=== PATIENT | female | born 1965 | race Caucasian/White ===

== ENCOUNTER 2017-03-06 07:46 | Inpatient (IN) | payer BC, OTHER ==
[~2017-03-06] VITALS: Ht 162.6 cm; Wt 62.6 kg
[2017-03-06] MEDS ORDERED: LOPERAMIDE HCL 2 MG CAPSULE PO PRN ×2 (10:00)
[2017-03-06] MEDS ORDERED: MAGNESIUM HYDROXIDE 30 ML LIQUID UDC PO PRN (10:00)
[2017-03-06] MEDS ORDERED: MIRALAX 17 GM POWD.PACK PO PRN (10:00)
[2017-03-06] MEDS ORDERED: ACETAMINOPHEN 325 MG TABLET PO PRN (10:00)
[2017-03-06] MEDS ORDERED: MAG HYDROX/AL HYDROX/SIMETH 30 ML LIQUID UDC PO PRN (10:00)
[2017-03-06] MEDS ORDERED: DIAZEPAM 10 MG TABLET PO PRN ×2 (10:00)
[2017-03-06] MEDS ORDERED: DIAZEPAM 5 MG TABLET PO PRN (10:00)
[2017-03-06] MEDS ORDERED: LORAZEPAM 2 MG/1 ML VIAL IM PRN (10:00)
[2017-03-06] MEDS ORDERED: DICYCLOMINE HCL 20 MG TABLET PO PRN (10:00)
[2017-03-06] MEDS ORDERED: diphenhydrAMINE 50 MG CAPSULE PO PRN (10:00)
--- NOTE | 2017-03-06 10:02 | NUR ---
INTAKE INTERVIEW Patient is alert an orientated X 4. Vitals signs are stable. Patient is able to answer intake questions appropriately and has a steady gait. Patient has NKA. Patient was seen by Dr. Reddy. Will orientate patient to unit and assess once she is arrives to the unit. .
--- NOTE | 2017-03-06 10:30 | NUR ---
ADMISSION NOTE VITALS:BP:129/74 P:101 T:96.8F R:18 O2:96% HEIGHT:5'4" WEIGHT:138LB ALLERGIES:ATUL patient is a 51 year old lady admitted to [facility] on at 1030. patient is under the care of Dr. Reddy for ETOH and Xanax dependence. Patient denies suicidal and homicidal ideations at this time. Patient denies being hospitalized in the past 30 days. Patient denies chest pain and SOB. Patient reports consuming a pint or more of ETOH daily and 1mg of Xanax a day. Skin is intact upon admission. CIWA 4 upon admission. NKA patient is alert X4 and able to answer questions necessary for the admission process. Pt is a full code. Vital signs within normal limit, and on a regular diet. Patient denies having a seizure in the past, she also denies having PCP. Breathing is even and unlabored, spo2 is 96% on room air. patient ambulates with a steady gait, patient re[ports feeling very tired. patient reports having a history of anxiety, HTN, and diabetes. Patient smokes roughly 1/2 pack of cigarettes a day. patient has been seen by Dr. Reddy and has been placed on observation. all needs have been met. patient has been orientated to her room and the unit. All safety measures have been met per hospital policies. Will continue to monitor patient. SUBSTANCE ABUSE: ETOH pint plus a day, last used 03/06/17 has yasmeen using for a year progressively XANAX 1mg daily last used 03/05/17, using for a year
[2017-03-06 10:49] LABS: *AMPHETAMINE, URINE NEGATIVE (NEGATIVE); *BARBITURATE, URINE POSITIVE (NEGATIVE); *CANNABINOID, URINE POSITIVE (NEGATIVE); *COCCAINE, URINE NEGATIVE (NEGATIVE); *OPIATE, URINE NEGATIVE (NEGATIVE); *PHENCYCLIDINE SCREEN,URINE NEGATIVE (NEGATIVE)
[2017-03-06 10:50] LABS: *URINE HCG, QUAL NEGATIVE (NEGATIVE)
[2017-03-06] MEDS ORDERED: THIAMINE HCL 200 MG/2 ML VIAL IM ONE (11:32)
[2017-03-06 11:49] LABS: ETHANOL < 3 MG/DL (0-0)
[2017-03-06 11:56] LABS: BASOPHILS # (AUTO) 0.2 K/uL (0.0-8.0); BASOPHILS % (AUTO) 2.1 % (0.0-2.0); EOSINOPHILS # (AUTO) 0.1 K/uL (0.0-0.7); EOSINOPHILS % (AUTO) 1.8 % (0.0-7.0); HEMATOCRIT 46.9 % (37-47); LYMPHOCYTES # (AUTO) 3.1 K/UL (0.8-4.8); LYMPHOCYTES % (AUTO) 40.8 % (20.5-51.5); MEAN CORPUSCULAR HEMOGLOBIN 33.8 UUG (27.0-31.0); MEAN CORPUSCULAR HGB CONC 34 g/dL (32.0-37.0); MEAN CORPUSCULAR VOLUME 98.8 FL (81.0-99.0); MONOCYTES # (AUTO) 0.6 K/UL (0.1-1.30); MONOCYTES % (AUTO) 7.3 % (0.0-11.0); NEUTROPHILS # (AUTO) 3.6 K/UL (1.8-8.9); PLATELET COUNT (AUTO) 331 K/UL (150-450); RED BLOOD CELL COUNT(AUTO) 4.75 MIL/UL (4.2-5.4); WHITE BLOOD COUNT (AUTO) 7.6 K/UL (4.0-11.2)
[2017-03-06 11:57] LABS: ALANINE AMINOTRANSFERASE 39 U/L (14-59); ALKALINE PHOSPHATASE 88 U/L (50-136); AMYLASE 47 U/L (25-115); ASPARTATE AMINOTRANSFERASE 23 U/L (15-37); BILIRUBIN,TOTAL 0.4 mg/dL (0.2-1.0); CARBON DIOXIDE 28 mmol/L (21-32); CHLORIDE 105 mmol/L (98-107); CREATININE 1.1 mg/dL (0.6-1.3); GLUCOSE 167 mg/dL (74-106); LIPASE 194 U/L (73-393); MAGNESIUM 2.2 mg/dL (1.8-2.4); TOTAL PROTEIN, SERUM 7.4 g/dL (6.4-8.2); UREA NITROGEN, BLOOD 10 mg/dL (7-18)
[2017-03-06 12:36] LABS: POTASSIUM 2.8 mmol/L (3.5-5.1)
[2017-03-06 13:08] VITALS: BP 149/94
[2017-03-06] MEDS ORDERED: POTASSIUM CHLORIDE 20 MEQ TAB.PRT.SR PO ONE (13:30)
[2017-03-06] MEDS: IBUPROFEN 600 MG TABLET PO PRN (13:34)
--- NOTE | 2017-03-06 13:36 | NUR ---
PRN MOTRIN Patient complaining of a headache 7 out of 10 pain. Motrin given will continue to monitor
[2017-03-06] MEDS ORDERED: DEXTROSE 50% 50 ML DISP.SYRIN IV PRN (14:15)
[2017-03-06] MEDS: GABAPENTIN 300 MG CAPSULE PO SCH ×2 (15:34→20:22)
[2017-03-06 16:51] VITALS: BP 146/94
[2017-03-06] MEDS: BLOOD SUGAR DIAGNOSTIC 1 EACH STRIP VI SCH ×2 (17:11→21:00)
[2017-03-06] MEDS: METFORMIN HCL 500 MG TABLET PO SCH (17:39)
[2017-03-06] MEDS: INSULIN REGULAR, HUMAN 300 UNIT/3 ML VIAL SQ PRN ×2 (17:42→22:08)
[2017-03-06] MEDS: CLONIDINE HCL 0.1 MG TABLET PO PRN (17:50)
--- NOTE | 2017-03-06 17:51 | NUR ---
CLONIDINE PRN patient complaining of increased anxiety and headache. BP 146/94. will continue to monitor patient.
[2017-03-06] MEDS: ALBUTEROL SULFATE 2.5 MG/3 ML NEBU NEB PRN (18:08)
--- NOTE | 2017-03-06 18:20 | NUR ---
PRN REASSESSMENT patient expresses headache is a little better after clonidine was given. Will continue to monitor
--- NOTE | 2017-03-06 19:02 | NUR ---
317 END OF SHIFT NOTE Patient was admitted today for ETOH and Xanax dependence. Patient is alert and orientated X4, gait is steady. Patient is in stable condition, BP is elevated and DR. Reddy aware. Patient has a medical history of hypertension, diabetes, and chronic migraines. PRN Motrin and Clonidine was given for headache and increased anxiety with effectiveness. Patients skin is intact. NKA. Patients potassium was 2.8 MD notified and replacement was ordered. Accu-cheeks ACHS with a sliding scale, patient is also on metformin. Last CIWA 6. All safety measures are in place per hospital policies. All needs have been met. Will continue to monitor patient until endorsed to night nurse.
--- NOTE | 2017-03-06 19:03 | NUR ---
Start of shift note Received report from day shift nurse. Pt is a 51 yo F, A+Ox4, presenting to [facility] for ETOH/Benzo dependence. Pt has NKA, is on Full Code status, and on Diabetic diet. Pt is on Fall precautions. Pt has HX of DM II, HTN, and Migraines. Pt is on PRN medications and 5 day Valium taper, to start tomorrow, tolerated well. No s/s of distress noted at this time. Respirations even and unlabored. Will continue to monitor.
[2017-03-06 20:15] VITALS: BP 151/89
--- NOTE | 2017-03-06 20:22 | NUR ---
PRN Tylenol Pt c/o headache and requested for PRN Tylenol. Medication given and tolerated well. Will reassess within 1 HR. Will continue to monitor.
[2017-03-06] MEDS ORDERED: POTASSIUM CHLORIDE 20 MEQ TAB.PRT.SR PO SCH (21:00)
--- NOTE | 2017-03-06 21:20 | NUR ---
PRN Tylenol Reassessment Pt states that the medication was "mildly effective". No s/s of ASE/distress noted at this time. Respirations even and unlabored. Will continue to monitor.
--- NOTE | 2017-03-06 22:14 | NUR ---
PRN Benadryl and Imodium Pt c/o loose stools and inability to sleep and requested for PRN Benadryl and Imodium. Medications given and tolerated well. Will reassess within 1 HR. Will continue to monitor.
[2017-03-06] MEDS: KETOROLAC TROMETHAMINE 30 MG INJ IM PRN (23:29)
--- NOTE | 2017-03-06 23:29 | NUR ---
PRN Toradol Pt c/o headache 02/05 and requested for PRN Toradol. Medication given and tolerated well. Will reassess within 1 HR. Will continue to monitor.
--- NOTE | 2017-03-07 00:25 | NUR ---
PRN Toradol Reassessment Medication effective. No s/s of ASE/distress noted at this time. Respirations even and unlabored. Will continue to monitor.
[2017-03-07 00:59] VITALS: BP 148/90
[2017-03-07 04:11] VITALS: BP 144/87
--- NOTE | 2017-03-07 06:54 | NUR ---
End of shift note Pt is a 51 yo Female, A+Ox4, presenting to [facility] for ETOH/Benzo dependence. Pt has NKA, is on Full Code status, and on Diabetic diet. Pt is on Fall precautions. Pt has HX of DM II, HTN, and Migraines. Pt is on PRN medications and 5 day Valium taper to start tomorrow, tolerated well. Pt was given PRN Tylenol @2021, PRN Benadryl and Imodium @2213, and PRN Toradol @2328. Pt slept for a total of 8 HRS. Last CIWA: 3 @0400. No s/s of distress noted at this time. Respirations even and unlabored. Will endorse to day shift nurse.
--- NOTE | 2017-03-07 07:53 | NUR ---
START OF SHIFT NOTE Patient is alert and orientated X4. Patient is awake walking around the unit this morning. She slept 8 hours last night per night nurse. Blood pressure is elevated this morning, scheduled BP meds will be given. PRN Tylenol, Benadryl, Imodium, and Toradol given last night with effectiveness. last CIWA 3 per night nurse. All safety measures in place. Will continue to monitor patient.
[2017-03-07 08:01] LABS: CREATININE 0.9 mg/dL (0.6-1.3); POTASSIUM 4.5 mmol/L (3.5-5.1)
[2017-03-07] MEDS: THIAMINE HCL 100 MG TABLET PO SCH (08:16)
[2017-03-07] MEDS: GABAPENTIN 300 MG CAPSULE PO SCH ×3 (08:16→22:34)
[2017-03-07] MEDS: METFORMIN HCL 500 MG TABLET PO SCH ×2 (08:16→17:33)
[2017-03-07] MEDS: FOLIC ACID 1 MG TABLET PO SCH (08:16)
[2017-03-07] MEDS: BLOOD SUGAR DIAGNOSTIC 1 EACH STRIP VI SCH ×4 (08:16→21:00)
[2017-03-07] MEDS: LINAGLIPTIN 5 MG TABLET PO SCH (08:17)
[2017-03-07] MEDS: LISINOPRIL 10 MG TABLET PO SCH (08:17)
[2017-03-07] MEDS: DIAZEPAM 10 MG TABLET PO SCH ×4 (08:17→22:34)
[2017-03-07] MEDS: MULTIVITAMINS,THERAPEUTIC TABLET PO SCH (08:19)
[2017-03-07] MEDS: NICOTINE 7 MG/24HR PATCH TD SCH (08:22)
[2017-03-07] MEDS: DOCUSATE SODIUM 250 MG CAPSULE PO SCH (08:22)
[2017-03-07] MEDS: INSULIN REGULAR, HUMAN 300 UNIT/3 ML VIAL SQ PRN ×4 (08:27→22:46)
[2017-03-07 08:47] VITALS: BP 148/98
[2017-03-07] MEDS ORDERED: TUBERCULIN,PURIF.PROT.DERIV. 5 TU/0.1 ML TEST ID ONE (09:00)
[2017-03-07] MEDS ORDERED: SITAGLIPTIN PHOSPHATE 50 MG TABLET PO SCH (09:00)
[2017-03-07] MEDS ORDERED: 5 DAY TAPER VALIUM-SERENITY PROTOCOL PO PRN (09:00)
[2017-03-07 10:10] LABS: HEPATITIS B SURFACE AG Negative (Negative)
[2017-03-07] MEDS: ALBUTEROL SULFATE 2.5 MG/3 ML NEBU NEB PRN (10:56)
[2017-03-07] MEDS ORDERED: KETOROLAC TROMETHAMINE 60 MG INJ IM ONE (11:30)
[2017-03-07 12:34] VITALS: BP 148/93
--- NOTE | 2017-03-07 13:17 | NUR ---
This fiction and nonfiction writer prose encouraged the client to attend groups. Client responded that she would not attend today but perhaps tomorrow.
[2017-03-07] MEDS: MAGNESIUM SULFATE/D5W 100 ML IV SCH ×2 (14:15→15:45)
--- NOTE | 2017-03-07 14:18 | NUR ---
IV #22j started left hand. Magnesium 1g in 100cc D5W running via pump at 100cc/hr. Tolerating well
[2017-03-07] MEDS ORDERED: ALBU18HF2 INH (14:28)
[2017-03-07] MEDS ORDERED: [UNRECOGNIZED DRUG - CODE] PO (14:28)
[2017-03-07] MEDS ORDERED: MONT10TA25 PO ×2 (14:28→14:29)
[2017-03-07] MEDS ORDERED: ACET-2605 PO (14:28)
[2017-03-07] MEDS ORDERED: CEPH500C2 PO (14:29)
[2017-03-07] MEDS ORDERED: PRED20TA PO (14:29)
[2017-03-07 17:10] VITALS: BP 150/96
--- NOTE | 2017-03-07 18:40 | NUR ---
END OF SHIFT NOTE Patient was admitted 03/06/17 for ETOH and Xanax dependence. patient is alert and orientated X 4. Patient has had elevated BP off and on today. Patient started a 5 day valium taper and tolerating well. Patient has an IV to her left hand 22 gauge for 2 gm of magnesium ordered. IV is help locked, no signs of infiltration. Patient received a breathing treatment from respiratory and Dr. Reddy order chest X ray for a persistent productive cough. TB was done today. Patient has been complaining of a headache no PRNs were given. Last CIWA 7. Patients skin is intact. Patient has ACCU-CK ACHS with a sliding scale for coverage. All safety measures are in place per hospital policies. All needs have been met. will continue to monitor patient until endorsed to oncoming night nurse.
--- NOTE | 2017-03-07 19:02 | NUR ---
Start of shift note Received report from day shift nurse. Pt is a 51 yo F, A+Ox4, presenting to [facility] for ETOH/Benzo dependence. Pt has NKA, is on Full Code status, and on Diabetic diet. Pt is on Fall precautions. Pt has HX of DM II, HTN, and Migraines. Pt is on 5 day Valium taper, tolerated well. No s/s of distress noted at this time. Respirations even and unlabored. Will continue to monitor.
[2017-03-07 20:09] VITALS: BP 141/90
[2017-03-07] MEDS: TRAZODONE 50 MG TABLET PO PRN (22:34)
[2017-03-07] MEDS: KETOROLAC TROMETHAMINE 30 MG INJ IM PRN (22:35)
--- NOTE | 2017-03-07 22:35 | NUR ---
PRN Trazodone and Toradol Pt c/o headache and inability to sleep and requested for PRN Trazodone and Toradol. Medications given and tolerated well. Will reassess within 1 HR. Will continue to monitor.
--- NOTE | 2017-03-07 23:20 | NUR ---
PRN Trazodone and Toradol Reassessment Medications effective. Pt is resting well in bed. No s/s of ASE/distress noted at this time. Respirations even and unlabored. Will continue to monitor.
[2017-03-08] VITALS (7 sets, daily range): BP systolic 135–159; BP diastolic 79–103
--- NOTE | 2017-03-08 07:00 | NUR ---
End of shift note Pt is a 51 yo Female, A+Ox4, presenting to [facility] for ETOH/Benzo dependence. Pt has NKA, is on Full Code status, and on Carb consistent diet. Pt is on Fall precautions. Pt has HX of DM II, HTN, and Migraines. Pt is on 5 day Valium taper tolerated well. Pt was given PRN Trazodone and PRN Toradol @2235. Pt slept for a total of 7 HRS. Last CIWA: 2 @0400. No s/s of distress noted at this time. Respirations even and unlabored. Will endorse to day shift nurse.
--- NOTE | 2017-03-08 07:30 | NUR ---
START OF SHIFT NOTE Pt is a 51 yr old female, AA&Ox4. Pt was admitted on 03/06/17 for ETOH/Benzo Dependence and is on 5 day Valium taper. Medication mitch well. Pt received Trazodone and Toradol PRN during the night. Medication mitch well. Pt slept for 7 hrs. Last CIWA score was 2. Pt has PMH of DII. Last accu-check was at HS. No s/s of hypo/hyperglycemia. Pt is c/o headache 03/08. Facial grimacing is observed. Encouraged increase fluid intake. Pt denies any anxiety or agitation at this time. Skin is intact, warm and dry to touch. Fine tremors are felt. Pt denies any n/v. IV site is on left hand with 22 gauge. Dressing is intact. Safety precautions observed. Call light is within reach. Will continue to monitor.
[2017-03-08] MEDS: BLOOD SUGAR DIAGNOSTIC 1 EACH STRIP VI SCH ×4 (07:43→21:00)
[2017-03-08] MEDS: GABAPENTIN 300 MG CAPSULE PO SCH ×3 (08:29→22:36)
[2017-03-08] MEDS: LISINOPRIL 10 MG TABLET PO SCH (08:29)
[2017-03-08] MEDS: METFORMIN HCL 500 MG TABLET PO SCH ×2 (08:29→17:04)
[2017-03-08] MEDS: THIAMINE HCL 100 MG TABLET PO SCH (08:29)
[2017-03-08] MEDS: MULTIVITAMINS,THERAPEUTIC TABLET PO SCH (08:29)
[2017-03-08] MEDS: DIAZEPAM 10 MG TABLET PO SCH ×3 (08:29→22:36)
[2017-03-08] MEDS: DOCUSATE SODIUM 250 MG CAPSULE PO SCH (08:30)
[2017-03-08] MEDS: FOLIC ACID 1 MG TABLET PO SCH (08:30)
[2017-03-08] MEDS: LINAGLIPTIN 5 MG TABLET PO SCH (08:30)
[2017-03-08] MEDS: NICOTINE 7 MG/24HR PATCH TD SCH (08:30)
[2017-03-08] MEDS: INSULIN REGULAR, HUMAN 300 UNIT/3 ML VIAL SQ PRN ×3 (08:33→22:47)
--- NOTE | 2017-03-08 08:40 | NUR ---
MEDICATION REFUSED Pt refused to take Colace 250mg and NicoDerm Patch 7mg. Pt states of having loose stool during the night and plans to smoke cigarettes during the day. Pt was educated on risks and benefits of medication but continued to refuse.
[2017-03-08] MEDS: IBUPROFEN 600 MG TABLET PO PRN (10:30)
--- NOTE | 2017-03-08 10:30 | NUR ---
MOTRIN PRN GIVEN Pt c/o headache 02/05. Motrin 600mg PO PRN was given as ordered. Medication mitch well. Encouraged increase fluid intake. Will continue to monitor.
--- NOTE | 2017-03-08 10:31 | NUR ---
IV 22 gauge was removed from left hand per Dr. Reddy.
--- NOTE | 2017-03-08 11:30 | NUR ---
PRN RE-ASSESSMENT Motrin PRN was effective. Pt's pain level reduced to 4/10. Encouraged increase fluid intake.
[2017-03-08] MEDS: GUAIFENESIN/DEXTROMETHORPHAN 5 ML UDC PO PRN ×2 (12:57→22:46)
--- NOTE | 2017-03-08 12:57 | NUR ---
PRN GIVEN Pt is observed with productive cough. Robitussin 10ml PRN was given as ordered. Encouraged increase fluid intake. Will continue to monitor.
--- NOTE | 2017-03-08 14:00 | NUR ---
PRN RE-ASSESSMENT Robitussin PRN was effective. Encouraged increase fluid intake. Will continue to monitor.
[2017-03-08] MEDS: CLINDAMYCIN HCL 150 MG CAPSULE PO SCH (17:05)
[2017-03-08] MEDS: KETOROLAC TROMETHAMINE 30 MG INJ IM PRN (17:22)
--- NOTE | 2017-03-08 17:26 | NUR ---
PRN GIVEN Pt c/o headache 02/05. Facial grimacing is observed. Toradol 30mg IM PRN was given as ordered. Will continue to monitor.
--- NOTE | 2017-03-08 19:00 | NUR ---
END OF SHIFT NOTE Pt is a 51 yr old female, AA&Ox4. Pt was admitted on 03/06/17 for ETOH/Benzo Dependence and is on 5 day Valium taper. Medication mitch well. Pt has been cooperative with medication regimen and attended group sessions. Last CIWA score was 4 at 1600. Pt has been c/o headache throughout the day. Motrin PRN was given at 1030 and Toradol at 1722. Medication was effective. Pt start on Clindamycin for Sinus infection. No adverse reaction noted. Encouraged increase fluid intake. Pt denies any anxiety or agitation at this time. Skin is intact, warm and dry to touch. No tremors seen or felt. Pt denies any n/v. Safety precautions observed. Call light is within reach.
--- NOTE | 2017-03-08 19:10 | NUR ---
Start of shift note Received report from day shift nurse. Pt is a 51 yo F, A+Ox4, presenting to [facility] for ETOH/Benzo dependence. Pt has NKA, is on Full Code status, and on Diabetic diet. Pt is on Fall precautions. Pt has HX of DM II, HTN, and Migraines. Pt is on 5 day Valium taper, tolerated well. No s/s of distress noted at this time. Respirations even and unlabored. Will continue to monitor.
[2017-03-08] MEDS: TRAZODONE 50 MG TABLET PO PRN (22:36)
--- NOTE | 2017-03-08 22:46 | NUR ---
PRN Trazodone and Robitussin DM Pt c/o cough and inability to sleep and requested for PRN Trazodone and Robitussin DM. Medications given and tolerated well. Will reassess within 1 HR. Will continue to monitor.
--- NOTE | 2017-03-08 23:40 | NUR ---
PRN Trazodone and Robitussin DM Reassessment Medications effective. Pt is resting well in bed. No s/s of ASE/distress noted at this time. Respirations even and unlabored. Will continue to monitor.
[2017-03-09] VITALS (7 sets, daily range): BP systolic 144–168; BP diastolic 86–98
[2017-03-09] MEDS: IBUPROFEN 600 MG TABLET PO PRN ×2 (06:39→13:37)
[2017-03-09] MEDS: GUAIFENESIN/DEXTROMETHORPHAN 5 ML UDC PO PRN ×3 (06:47→22:01)
--- NOTE | 2017-03-09 06:47 | NUR ---
PRN Robitussin DM and Motrin Pt c/o headache and cough and requested for PRN Robitussin DM and Motrin. Medications given and tolerated well. Will reassess within 1 HR. Will continue to monitor.
--- NOTE | 2017-03-09 07:15 | NUR ---
PRN Robitussin and Motrin Reassessment Medications effective. No s/s of ASE/distress noted at this time. Respirations even and unlabored. Will continue to monitor.
--- NOTE | 2017-03-09 07:16 | NUR ---
End of shift note Pt is a 51 yo Female, A+Ox4, presenting to [facility] for ETOH/Benzo dependence. Pt has NKA, is on Full Code status, and on Carb consistent diet. Pt is on Fall precautions. Pt has HX of DM II, HTN, and Migraines. Pt is on 5 day Valium taper tolerated well. Pt was given PRN Trazodone and PRN Robitussin DM @2246 and PRN Robitussin DM and Motrin @0647. Pt slept for a total of 7 HRS. Last CIWA: 3 @0400. No s/s of distress noted at this time. Respirations even and unlabored. Will endorse to day shift nurse.
--- NOTE | 2017-03-09 07:35 | NUR ---
BEGINNING OF SHIFT Patient endorsement report received from casino shift manager nurse, all pertinent information discussed. Patient is a 51 year old Female admitted for ETOH/BZO dependence, who was placed on a 5-day Valium taper as ordered, and is scheduled to begin day 3 of taper. No adverse reactions noted. NKA. FULL CODE. Regular diet. Per casino shift manager patient received PRN: Trazodone, Motrin and Robitussin x2, during casino shift manager, medication effective as per casino shift manager. Slept for 7 hours. Last CIWA: 3. On fall and seizure precautions. Educated patient on the current plan of care for the day and his medication regimen, Safety measures in place. call light kept with in reach, will continue to monitor.
[2017-03-09] MEDS: BLOOD SUGAR DIAGNOSTIC 1 EACH STRIP VI SCH ×4 (08:15→21:59)
[2017-03-09] MEDS: CLINDAMYCIN HCL 150 MG CAPSULE PO SCH ×2 (08:16→17:00)
[2017-03-09] MEDS: MULTIVITAMINS,THERAPEUTIC TABLET PO SCH (08:16)
[2017-03-09] MEDS: GABAPENTIN 300 MG CAPSULE PO SCH ×3 (08:17→21:56)
[2017-03-09] MEDS: DOCUSATE SODIUM 250 MG CAPSULE PO SCH (08:17)
[2017-03-09] MEDS: THIAMINE HCL 100 MG TABLET PO SCH (08:17)
[2017-03-09] MEDS: FOLIC ACID 1 MG TABLET PO SCH (08:17)
[2017-03-09] MEDS: LISINOPRIL 10 MG TABLET PO SCH (08:17)
[2017-03-09] MEDS: LINAGLIPTIN 5 MG TABLET PO SCH (08:17)
[2017-03-09] MEDS: MONTELUKAST SODIUM 10 MG TABLET PO SCH (08:17)
[2017-03-09] MEDS: DIAZEPAM 5 MG TABLET PO SCH ×4 (08:17→21:56)
[2017-03-09] MEDS: NICOTINE 7 MG/24HR PATCH TD SCH (08:19)
[2017-03-09] MEDS: INSULIN REGULAR, HUMAN 300 UNIT/3 ML VIAL SQ PRN ×3 (08:21→17:22)
[2017-03-09] MEDS: METFORMIN HCL 500 MG TABLET PO SCH ×2 (08:26→17:00)
--- NOTE | 2017-03-09 13:37 | NUR ---
PRN MOTRIN/ROBITUSSIN Patient c/o head ache 4/10 and on/off cough. Administered Motrin as ordered and Robitussin as ordered, monitor closely for effectiveness of medication.
--- NOTE | 2017-03-09 14:47 | NUR ---
MOTRIN/ROBITUSSIN REASSESSMENT Patient reports medication effective no c/o headache pain level 0/10. Patient reports decrease in cough. medications were effective, will continue to monitor.
--- NOTE | 2017-03-09 18:43 | NUR ---
END OF SHIFT Patient alert and oriented x4, vital signs stable during shift. Patient compliant with therapeutic plan of care during shift. Patient continues on 5 day Valium taper as ordered, and is currently on day 3 of taper, well tolerate no ASE noted. Encouraged adequate PO fluid intake as tolerated. 0900 assessment patient presented with: moderate anxiety and very mild headache with ciwa score of: 5; 1300 assessment patient presented with: moderate anxiety and very mild headache with ciwa score of: 5; 1700 assessment patient presented with: moderate anxiety and very mild headache with ciwa score of: 5. Blood sugar monitored during shift as ordered, 0730 blood sugar: 160, administered 2 units as ordered, 1130 blood sugar: 180, administered 3 units of regular insulin as ordered; 1630 blood sugar: 170, administered 3 unit of regular insulin as ordered, well tolerated. Patient also continues on ATB therapy as ordered for sinus infection as per MD. Well tolerated, no ASE noted. Patient afebrile during shift. Patient still noted with on/off productive cough, encouraged to increase PO fluid intake as tolerated. .Patient received PRN: Motrin and Robitussin during shift, medications effective. Encouraged to attend group therapies/sessions to learn new coping skills to prevent relapse. Safety measures i place, call light kept with in reach. Patient endorsed to night guard nurse, all pertinent information discussed.
--- NOTE | 2017-03-09 19:10 | NUR ---
Start of Shift Patient Received. Patient is in activities room participating in a group meeting. Patient is a 51 year old female admitted on 03/06/17 for ETOH Dependence under the care of Dr. Reddy. Patient is currently receiving a 5 day Valium taper. Patient verbalizes no known allergies, wishes to be full code, following a regular diet, placed on fall precautions, with skin noted intact. Patients past medical history noted as DM with accu checks ACHS, HTN, and Chronic migraines. Per endorsement, patient was given PRN Motrin and PRN Robitussin for productive cough. Patients last noted CIWA noted to be 5. All needs attended to promptly. Will continue plan of care as ordered.
[2017-03-09] MEDS: CLONIDINE HCL 0.1 MG TABLET PO PRN (21:15)
--- NOTE | 2017-03-09 21:15 | NUR ---
PRN Medication Administration Patient is noted with elevated BP of 168/97 and pulse of 90. PRN Clonidine administered as per orders. Will continue to monitor.
[2017-03-09] MEDS: TRAZODONE 50 MG TABLET PO PRN (21:56)
--- NOTE | 2017-03-09 22:05 | NUR ---
PRN Medication Reassessment/ PRN Medication Administration Blood pressure reassessed and noted to be 144/92 and pulse noted to be 90. PRN Clonidine noted to be effective. Patient is also requesting medication for increased cough and inability of falling asleep. PRN Robitussin and Trazodone administered as per order. Will continue to monitor.
--- NOTE | 2017-03-09 23:10 | NUR ---
PRN Medication Reassessment Patient noted in bed sleeping. Breathing even and non labored. No signs of pain or discomfort noted. No cough noted while sleeping. PRN Robitussin and PRN trazodone noted to be effective. Will continue to monitor.
[2017-03-10] VITALS (7 sets, daily range): BP systolic 122–166; BP diastolic 74–103
--- NOTE | 2017-03-10 07:12 | NUR ---
End of Shift Patient is in bed sleeping. Breathing even and non labored. No signs of pain or discomfort noted. Patient is a 51 year old female admitted on 03/06/17 for ETOH Dependence and continues on a 5 day valium taper. Patient was given PRN Clonidine, Robitussin, and Trazodone with all medications noted to be effective. Patient noted to sleep a total of 8 hours. All needs attended to promptly. Will endorse to continue plan of care as ordered.
--- NOTE | 2017-03-10 07:13 | NUR ---
Start of Shift Note: Received patient in his room. Alert and oriented x 4. Verbally responsive. Able to make needs known. Respirations even and unlabored. No SOB noted. Skin warm and dry to touch. Abdomen soft and non-distended with (+) BS in all 4 quadrants. No complains of N/V/D or constipation noted. Bladder non-distended. No complains of dysuria. Voids independently. Ambulatory ad nery with steady gait. Patient is a 51 year old female admitted for ETOH and BZO dependence who was placed on a 5-day Valium taper as ordered. No adverse reactions noted. Has past medical hx of DM, HTN and chronic migraines. Prior to admission, patient drinks 1 pint of more of ETOH and 1 mg of Xanax. NKA. FULL CODe. Regular diet. on fall and seizure precautions. Educated patient on his current plano of care for the day and his medication regimen. Encouraged oral fluid intake and encouraged group participation to learn new skills to prevent relapse. Will continue to monitor.
[2017-03-10] MEDS: BLOOD SUGAR DIAGNOSTIC 1 EACH STRIP VI SCH ×4 (07:43→21:40)
[2017-03-10] MEDS: LINAGLIPTIN 5 MG TABLET PO SCH (08:20)
[2017-03-10] MEDS: MULTIVITAMINS,THERAPEUTIC TABLET PO SCH (08:20)
[2017-03-10] MEDS: GUAIFENESIN/DEXTROMETHORPHAN 5 ML UDC PO PRN ×2 (08:20→21:36)
[2017-03-10] MEDS: IBUPROFEN 600 MG TABLET PO PRN ×2 (08:21→17:28)
[2017-03-10] MEDS: MONTELUKAST SODIUM 10 MG TABLET PO SCH (08:21)
[2017-03-10] MEDS: FOLIC ACID 1 MG TABLET PO SCH (08:21)
[2017-03-10] MEDS: DIAZEPAM 5 MG TABLET PO SCH ×3 (08:21→21:35)
[2017-03-10] MEDS: GABAPENTIN 300 MG CAPSULE PO SCH ×3 (08:21→21:35)
[2017-03-10] MEDS: CLINDAMYCIN HCL 150 MG CAPSULE PO SCH (08:21)
[2017-03-10] MEDS: THIAMINE HCL 100 MG TABLET PO SCH (08:21)
[2017-03-10] MEDS: METFORMIN HCL 500 MG TABLET PO SCH ×2 (08:21→17:28)
[2017-03-10] MEDS: LISINOPRIL 10 MG TABLET PO SCH (08:21)
--- NOTE | 2017-03-10 08:21 | NUR ---
Motrin 600 mg PO/Robitussin DM given: Patient requested for Robitusssin DM for cough and Motrin 600 mg PO for headache. 12/06. Will monitor for effectiveness.
[2017-03-10] MEDS: INSULIN REGULAR, HUMAN 300 UNIT/3 ML VIAL SQ PRN ×4 (08:23→21:33)
[2017-03-10] MEDS: DOCUSATE SODIUM 250 MG CAPSULE PO SCH (09:00)
[2017-03-10] MEDS: NICOTINE 7 MG/24HR PATCH TD SCH (09:00)
--- NOTE | 2017-03-10 09:21 | NUR ---
Re-assessment: Per patient, PRN Robitussin and Motrin were effective in reducing cough and headache. PL 2/10.
--- NOTE | 2017-03-10 09:59 | NUR ---
Nicoderm CQ/DSS 250mg not administered: Patient refused Nicoderm patch at 0900 and DSS. Per patient, she will continue to smoke today. Smoking cessation education provided. Per patient, she is able to move her stools without any difficulty. Educated patient on the risk and benefits but patient still refused. Will continue to monitor.
[2017-03-10] MEDS ORDERED: PSEUDOEPHEDRINE HCL 30 MG TABLET PO PRN (13:00)
--- NOTE | 2017-03-10 17:29 | NUR ---
Motrin 600 mg PO/Robitussin DM given: Patient requested for Motrin 600 mg PO for headache. 12/06. Will monitor for effectiveness.
--- NOTE | 2017-03-10 18:29 | NUR ---
Re-assessment: Per patient, PRN Motrin was effective in reducing patient's headache. PL 09/08.
--- NOTE | 2017-03-10 18:59 | NUR ---
End of Shift Notes: Patient continues to be on 5-day Valium taper to manage withdrawals related to BZO and ETOH. Tolerating taper well. No adverse reactions noted. VS monitored closely. No significant abnormalities noted. Withdrawal symptoms were closely monitored. Initial CIWA 9, patient presented with anxiety, agitation, and gross tremors. Last CIWA 4. Per patient, Valium has been helping her with her withdrawal symptoms. Medicated patient with Motrin and Robitussin at 0821 for cough and headache with help. Another dose of Motrin was given at 1729 for headache, with help after 1 hour. Patients BS was routinely checked AC meals. Covered with RI coverage per SS. No s/s of hypo/hyperglycemia noted. No diabetic reactions noted. Compliant with dietary order. Participated in group and activities despite her withdrawal symptoms. All needs met and attended. Call light kept in reach. Will continue to monitor closely.
--- NOTE | 2017-03-10 19:05 | NUR ---
Start of Shift Patient Received. Patient is in activities room participating in a group meeting. Patient is a 51 year old female admitted on 03/06/17 for ETOH Dependence under the care of Dr. Reddy. Patient continues on a 5 day Valium taper. No known allergies, wishes to be full code, following a regular diet, placed on fall precautions, with skin noted intact. Patients past medical history noted as DM with Accu checks ACHS, HTN, and Chronic migraines. Per endorsement, patient was seen by MD with new orders for Flonase, Culturelle, and Biaxin. Trazodone discontinued and changed to Benadryl. Patient was given PRN Robitussin and Motrin. Patients last blood sugar noted to be 143 with 2 units of insulin administered. Patients last noted CIWA noted to be 4. All needs attended to promptly. Will continue plan of care as ordered.
[2017-03-10] MEDS: CLONIDINE HCL 0.1 MG TABLET PO PRN (20:41)
--- NOTE | 2017-03-10 20:45 | NUR ---
PRN Medication Administration Patient is noted with elevated BP of 166/103 and pulse of 92. PRN Clonidine administered as per orders. Will continue to monitor.
[2017-03-10] MEDS: CLARITHROMYCIN 250 MG TABLET PO SCH (21:35)
[2017-03-10] MEDS: diphenhydrAMINE 50 MG CAPSULE PO PRN (21:35)
[2017-03-10] MEDS: LACTOBACILLUS RHAMNOSUS GG 1 EACH CAPSULE PO SCH (21:35)
[2017-03-10] MEDS: FLUTICASONE PROP NASAL SPRAY 16 GM BOTTLE NS SCH (21:36)
[2017-03-10] MEDS: KETOROLAC TROMETHAMINE 30 MG INJ IM PRN (21:37)
--- NOTE | 2017-03-10 21:40 | NUR ---
PRN Medication Reassessment/ PRN Medication Administration Blood pressure reassessed and noted to be 149/91 and pulse noted to be 95. PRN Clonidine noted to be effective. Patient is also requesting medication for increased cough, inability of falling asleep, and pain medication for increased pain due to a headache 03/08. PRN Robitussin, Benadryl, and Toradol injection administered as per orders. Will continue to monitor
--- NOTE | 2017-03-10 23:40 | NUR ---
PRN Medication Reassessment Patient noted in bed sleeping. Breathing even and non labored. No signs of pain or discomfort noted. No cough noted while sleeping. PRN Robitussin, Benadryl, and Toradol noted to be effective. Patient continues to sleep well with no complications noted. Will continue to monitor.
[2017-03-11 00:24] VITALS: BP 127/83
[2017-03-11 04:00] VITALS: BP 131/86
--- NOTE | 2017-03-11 07:15 | NUR ---
End of Shift Patient is in bed sleeping. Breathing even and non labored. No signs of pain or discomfort noted. Patient is a 51 year old female admitted on 03/06/17 for ETOH Dependence and continues on a 5 day valium taper. Patient was given PRN Clonidine, Robitussin, Benadryl and Toradol with all medications noted to be effective. Patient noted to sleep a total of 7 hours. All needs attended to promptly. Will endorse to continue plan of care as ordered.
[2017-03-11 08:00] VITALS: BP 147/97
[2017-03-11] MEDS: BLOOD SUGAR DIAGNOSTIC 1 EACH STRIP VI SCH ×4 (08:07→21:19)
[2017-03-11] MEDS: MONTELUKAST SODIUM 10 MG TABLET PO SCH (08:19)
[2017-03-11] MEDS: GUAIFENESIN/DEXTROMETHORPHAN 5 ML UDC PO PRN ×3 (08:19→21:11)
[2017-03-11] MEDS: GABAPENTIN 300 MG CAPSULE PO SCH ×3 (08:19→21:11)
[2017-03-11] MEDS: IBUPROFEN 600 MG TABLET PO PRN ×2 (08:19→17:22)
[2017-03-11] MEDS: METFORMIN HCL 500 MG TABLET PO SCH ×2 (08:19→17:16)
[2017-03-11] MEDS: MULTIVITAMINS,THERAPEUTIC TABLET PO SCH (08:19)
[2017-03-11] MEDS: FOLIC ACID 1 MG TABLET PO SCH (08:19)
--- NOTE | 2017-03-11 08:19 | NUR ---
Motrin 600 mg PO/Robitussin DM given: Patient requested for Motrin 600 mg PO for headache. 5/10 and Robitussin 10cc for cough. Will monitor for effectiveness.
[2017-03-11] MEDS: THIAMINE HCL 100 MG TABLET PO SCH (08:20)
[2017-03-11] MEDS: LINAGLIPTIN 5 MG TABLET PO SCH (08:20)
[2017-03-11] MEDS: DIAZEPAM 5 MG TABLET PO SCH ×2 (08:20→21:11)
[2017-03-11] MEDS: LACTOBACILLUS RHAMNOSUS GG 1 EACH CAPSULE PO SCH ×2 (08:20→21:11)
[2017-03-11] MEDS: LISINOPRIL 10 MG TABLET PO SCH (08:20)
[2017-03-11] MEDS: CLARITHROMYCIN 250 MG TABLET PO SCH ×2 (08:21→21:10)
[2017-03-11] MEDS: INSULIN REGULAR, HUMAN 300 UNIT/3 ML VIAL SQ PRN ×3 (08:23→21:18)
--- NOTE | 2017-03-11 09:19 | NUR ---
Re-assessment: Per patient, PRN Motrin and Robitussin was effective in reducing patient's headache and cough. PL 2.
[2017-03-11 12:00] VITALS: BP 135/98
[2017-03-11] MEDS: CLONIDINE HCL 0.1 MG TABLET PO SCH ×2 (15:00→21:10)
[2017-03-11 16:00] VITALS: BP 145/92
--- NOTE | 2017-03-11 16:06 | NUR ---
Clonidine 0.1mg PO not administered: Patient resting in bed with eyes closed. Respirations even and unlabored. Clonidine 0.1mg PO held at this time. Will continue to monitor. aware.
--- NOTE | 2017-03-11 17:22 | NUR ---
Motrin 600 mg PO/Robitussin DM given: Patient requested for Motrin 600 mg PO for headache. 11/06 and Robitussin 10cc for cough. Will monitor for effectiveness.
--- NOTE | 2017-03-11 18:22 | NUR ---
Re-assessment: Per patient, PRN Motrin and Robitussin was effective in reducing patient's headache and cough. PL 08/08
--- NOTE | 2017-03-11 18:56 | NUR ---
End of Shift Notes: Patient continues to be on 5-day Valium taper to manage withdrawals related to BZO and ETOH. Tolerating taper well. No adverse reactions noted. VS monitored closely. No significant abnormalities noted. Withdrawal symptoms were closely monitored. Initial CIWA 7, patient presented with anxiety, agitation, and gross tremors. Last CIWA 4. Per patient, Valium has been helping her with her withdrawal symptoms. Medicated patient with Motrin and Robitussin at 0819 for cough and headache with help. Patients BS was routinely checked AC meals. Covered with RI coverage per SS. No s/s of hypo/hyperglycemia noted. No diabetic reactions noted. Compliant with dietary order. Participated in group and activities despite her withdrawal symptoms. All needs met and attended. Call light kept in reach. Will continue to monitor closely.
--- NOTE | 2017-03-11 19:05 | NUR ---
Start of Shift Patient Received. Patient is in activities room participating in a group meeting. Patient is a 51 year old female admitted on 03/06/17 for ETOH Dependence under the care of Dr. Reddy. Patient continues on a 5 day Valium taper. No known allergies, wishes to be full code, following a regular diet, placed on fall precautions, with skin noted intact. Patients past medical history noted as DM with Accu checks ACHS, HTN, and Chronic migraines. Per endorsement, was given PRN Robitussin and Motrin with medication noted to be effective. Patient continues to frequently go on smoke breaks despite increased cough. Patients last blood sugar noted to be 137 with 2 units of insulin administered. Patients last noted CIWA noted to be 4. All needs attended to promptly. Will continue plan of care as ordered.
[2017-03-11 20:30] VITALS: BP 146/96
[2017-03-11] MEDS: FLUTICASONE PROP NASAL SPRAY 16 GM BOTTLE NS SCH (21:09)
[2017-03-11] MEDS: diphenhydrAMINE 50 MG CAPSULE PO PRN (21:11)
--- NOTE | 2017-03-11 21:15 | NUR ---
PRN Medication Administration Patient is noted with increased cough and verbalizing inability of falling. PRN Benadryl and Robitussin administered as per order. MD is aware of administration of PRN Robitussin. Will continue to monitor.
--- NOTE | 2017-03-11 22:15 | NUR ---
PRN Medication Reassessment patient noted in bed sleeping. Breathing even and non labored. No signs of pain or discomfort noted. Patient given PRN Benadryl and PRN Robitussin with medication noted to be effective. Patient able to sleep with no complications noted.
[2017-03-12 00:35] VITALS: BP 113/78
[2017-03-12 04:00] VITALS: BP 123/87
[2017-03-12] MEDS ORDERED: HYDROXYZINE PAMOATE 25 MG CAPSULE PO PRN (05:45)
--- NOTE | 2017-03-12 05:48 | NUR ---
PRN Medication Administration Patient noted awake and verbalizing increased anxiety. Relayed to MD with new order for PRN Vistaril 25mg. Order noted and administered as ordered. Will continue to monitor as ordered.
[2017-03-12] MEDS ORDERED: HYDROXYZINE PAMOATE 25 MG CAPSULE ONE (05:54)
--- NOTE | 2017-03-12 06:45 | NUR ---
PRN Medication Reassessment Patient was given PRN Vistaril for increased anxiety. Medication noted to be effective. Patient noted sleeping with no complications noted. Will continue plan of care as ordered.
--- NOTE | 2017-03-12 06:57 | NUR ---
End of Shift Patient is in bed sleeping. Breathing even and non labored. No signs of pain or discomfort noted. Patient is a 51 year old female admitted on 03/06/17 for ETOH Dependence and has completed a 5 day Valium taper. New order for PRN Vistaril 25mg obtained due to increase anxiety level. Patient was given PRN Robitussin, Benadryl, and Vistaril. Patient noted to sleep a total of 6 hours. All needs attended to promptly. Will endorse to continue plan of care as ordered.
--- NOTE | 2017-03-12 07:30 | NUR ---
Start of shift note; Received report from night nurse. Patient is a 51 year old male admitted on 03/06/17 for ETOH/Benzodiazepine withdrawals. Patient was placed on a 5 day Valium taper, patient completed taper without any adverse reactions. Patient reported diabetes,hypertension and chronic migraine. Patient is on full code status, NKA. Patient is on fall and seizure precautions. Bed in lowest position, call light within reach. Will continue to monitor patient.
[2017-03-12] MEDS: BLOOD SUGAR DIAGNOSTIC 1 EACH STRIP VI SCH ×4 (07:57→21:22)
[2017-03-12 08:00] VITALS: BP 134/96
[2017-03-12] MEDS: LISINOPRIL 10 MG TABLET PO SCH (08:39)
[2017-03-12] MEDS: THIAMINE HCL 100 MG TABLET PO SCH (08:39)
[2017-03-12] MEDS: CLONIDINE HCL 0.1 MG TABLET PO SCH ×3 (08:39→21:14)
[2017-03-12] MEDS: FOLIC ACID 1 MG TABLET PO SCH (08:39)
[2017-03-12] MEDS: MULTIVITAMINS,THERAPEUTIC TABLET PO SCH (08:39)
[2017-03-12] MEDS: MONTELUKAST SODIUM 10 MG TABLET PO SCH (08:39)
[2017-03-12] MEDS: GABAPENTIN 300 MG CAPSULE PO SCH ×3 (08:39→21:14)
[2017-03-12] MEDS: LACTOBACILLUS RHAMNOSUS GG 1 EACH CAPSULE PO SCH ×2 (08:39→21:14)
[2017-03-12] MEDS: CLARITHROMYCIN 250 MG TABLET PO SCH ×2 (08:40→21:15)
[2017-03-12] MEDS: LINAGLIPTIN 5 MG TABLET PO SCH (08:40)
[2017-03-12] MEDS: METFORMIN HCL 500 MG TABLET PO SCH ×2 (08:47→17:08)
[2017-03-12] MEDS ORDERED: KETOROLAC TROMETHAMINE 30 MG INJ IM PRN (11:30)
[2017-03-12] MEDS: INSULIN REGULAR, HUMAN 300 UNIT/3 ML VIAL SQ PRN ×3 (11:52→21:36)
[2017-03-12 12:00] VITALS: BP 124/84
--- NOTE | 2017-03-12 12:06 | NUR ---
Accu-check; Blood sugar checked, obtained 150mg/dl, 2 units of insulin given to patient per sliding scale protocol. Patient tolerated procedure well.
[2017-03-12] MEDS ORDERED: FLUT16SP NS (13:43)
[2017-03-12] MEDS ORDERED: GABA-534 PO (13:43)
[2017-03-12] MEDS ORDERED: LINA5TAB PO (13:43)
[2017-03-12] MEDS ORDERED: CLON0.1T14 PO (13:43)
[2017-03-12] MEDS ORDERED: LISI10TA5 PO (13:43)
[2017-03-12] MEDS ORDERED: HYDR-3895 PO (13:43)
[2017-03-12] MEDS ORDERED: LACT1CAP57 PO (13:43)
[2017-03-12] MEDS ORDERED: METF500T4 PO (13:43)
[2017-03-12] MEDS ORDERED: CLAR250T PO (13:43)
[2017-03-12 16:00] VITALS: BP 117/79
[2017-03-12 16:34] LABS: *AMPHETAMINE, URINE NEGATIVE (NEGATIVE); *BARBITURATE, URINE NEGATIVE (NEGATIVE); *CANNABINOID, URINE NEGATIVE (NEGATIVE); *COCCAINE, URINE NEGATIVE (NEGATIVE); *OPIATE, URINE NEGATIVE (NEGATIVE); *PHENCYCLIDINE SCREEN,URINE NEGATIVE (NEGATIVE)
--- NOTE | 2017-03-12 17:05 | NUR ---
Accu-check; Blood sugar checked, 194 mg/dl noted, 3 units of insulin given per sliding scale. Patient tolerated procedure well.
--- NOTE | 2017-03-12 18:30 | NUR ---
End of shift note; Patient is AOX4. Patient is a 51 year old male admitted on 03/06/17 for ETOH/Benzodiazepine withdrawals. Patient was placed on a 5 day Valium taper, patient completed taper without any adverse reactions. Patient reported diabetes,hypertension and chronic migraine. Patient is on full code status, NKA. Patient is on fall and seizure precautions. Patient remained compliant with treatment plan. Medications were effective in reducing withdrawal symptoms. Met all needs.
--- NOTE | 2017-03-12 19:06 | NUR ---
Start of shift note Received report from day shift nurse. Pt is a 51 yo F, A+Ox4, presenting to [facility] for ETOH/Benzo dependence. Pt has NKA, is on Full Code status, and on Diabetic diet. Pt is on Fall precautions. Pt has HX of DM II, HTN, and Migraines. Pt has completed 5 day Valium taper, tolerated well, and is due for discharge tomorrow. No s/s of distress noted at this time. Respirations even and unlabored. Will continue to monitor.
[2017-03-12 20:36] VITALS: BP 124/87
[2017-03-12] MEDS: FLUTICASONE PROP NASAL SPRAY 16 GM BOTTLE NS SCH (21:13)
[2017-03-12] MEDS: diphenhydrAMINE 50 MG CAPSULE PO PRN (21:14)
[2017-03-12] MEDS: IBUPROFEN 600 MG TABLET PO PRN (21:14)
--- NOTE | 2017-03-12 21:14 | NUR ---
PRN Robitussin, Benadryl, and Motrin Pt c/o cough, headache, and inability to sleep and requested for PRN Robitussin, Benadryl and Motrin. Medications given and tolerated well. Will reassess within 1 HR. Will continue to monitor.
[2017-03-12] MEDS: GUAIFENESIN/DEXTROMETHORPHAN 5 ML UDC PO PRN (21:15)
--- NOTE | 2017-03-12 22:10 | NUR ---
PRN Robitussin, Benadryl, and Motrin Reassessment Medications effective. Pt is resting well in bed. No s/s of ASE/distress noted at this time. Respirations even and unlabored. Will continue to monitor.
[2017-03-13 00:56] VITALS: BP 122/75
[2017-03-13 04:10] VITALS: BP 118/71
--- NOTE | 2017-03-13 07:00 | NUR ---
End of shift note Pt is a 51 yo Female, A+Ox4, presenting to [facility] for ETOH/Benzo dependence. Pt has NKA, is on Full Code status, and on Carb consistent diet. Pt is on Fall precautions. Pt has HX of DM II, HTN, and Migraines. Pt is on 5 day Valium taper tolerated well. Pt was given PRN Robitussin DM, Benadryl and Motrin @2113. Pt slept for a total of 7 HRS. Last CIWA: 2 @0400. No s/s of distress noted at this time. Respirations even and unlabored. Will endorse to day shift nurse. Addendum: 03/13/17 at 0716 by BARTOLO PALOMO LVN Has completed 5 day Valium taper, tolerated well, and is due for discharge today.
--- NOTE | 2017-03-13 07:35 | NUR ---
Start of Shift Scheduling Assistant received report on 51 year old female admitted on 03/06/17 for ETOH and Benzodiazepine detoxification. Pt has NKA, is a full code and on a regular diet. Pt reports PMH of DM #2, HTN and Migraines. Pt has completed her Valium taper and is scheduled to discharge today. Scheduling Assistant encounters pt in her room. Pt is A/O x4 and able to make needs known. Pleasant affect with congruent mood. Calm and cooperative. Bed in low position, with wheels locked, side rails up x2 and call light within reach. Will continue to monitor, support and encourage according to plan of care.
[2017-03-13] MEDS: BLOOD SUGAR DIAGNOSTIC 1 EACH STRIP VI SCH (07:41)
[2017-03-13] MEDS: INSULIN REGULAR, HUMAN 300 UNIT/3 ML VIAL SQ PRN (08:16)
[2017-03-13] MEDS: LINAGLIPTIN 5 MG TABLET PO SCH (08:18)
[2017-03-13] MEDS: MONTELUKAST SODIUM 10 MG TABLET PO SCH (08:19)
[2017-03-13] MEDS: METFORMIN HCL 500 MG TABLET PO SCH (08:19)
[2017-03-13] MEDS: CLARITHROMYCIN 250 MG TABLET PO SCH (08:19)
[2017-03-13] MEDS: GABAPENTIN 300 MG CAPSULE PO SCH (08:19)
[2017-03-13] MEDS: FOLIC ACID 1 MG TABLET PO SCH (08:19)
[2017-03-13] MEDS: LACTOBACILLUS RHAMNOSUS GG 1 EACH CAPSULE PO SCH (08:19)
[2017-03-13] MEDS: CLONIDINE HCL 0.1 MG TABLET PO SCH (08:20)
[2017-03-13] MEDS: LISINOPRIL 10 MG TABLET PO SCH (08:20)
[2017-03-13] MEDS: GUAIFENESIN/DEXTROMETHORPHAN 5 ML UDC PO PRN (08:28)
[2017-03-13] MEDS: IBUPROFEN 600 MG TABLET PO PRN (08:29)
[2017-03-13] MEDS: THIAMINE HCL 100 MG TABLET PO SCH (08:29)
[2017-03-13] MEDS: MULTIVITAMINS,THERAPEUTIC TABLET PO SCH (08:29)
--- NOTE | 2017-03-13 08:30 | NUR ---
PRN Motrin/Robotussin Pt requested cough syrup and a pain reliever to help with headache. Pt states she has tried non-pharmacological interventions with no relief. [facility] Justice administered medication per order.
[2017-03-13 08:45] VITALS: BP 127/86
--- NOTE | 2017-03-13 09:35 | NUR ---
Discharge Note Pt discharged per ambulation to awaiting transportation service. Pt stable with VS WNL. Denies HI/SI or A/VH. All belongings returned, including home medication. All personal belongings signed and accounted for. Discharge education provided including medication education and s/s of when to notify a professional. All teaching provided and duplicates placed in pt's belongings. Prescriptions, lab results and all other pertinent material provided. Pt excited for her treatment and is optimistic for the future. aware of pt's departure.
== END 2017-03-13 09:35 | disposition other institution (70) | DRG 895 ==
LOC: SRC 09:10
PROVIDERS: ADMIT Internal Medicine; ATTEND Internal Medicine
PROC: HZ2ZZZZ Detoxification Services for Substance Abuse Treatment (ICD-10-PCS; principal; 2017-03-06)
PROC: HZ31ZZZ Individual Counseling for Substance Abuse Treatment, Behavioral (ICD-10-PCS; 2017-03-07)
PROC: HZ41ZZZ Group Counseling for Substance Abuse Treatment, Behavioral (ICD-10-PCS; 2017-03-08)
DX: F10.230 Alcohol dependence with withdrawal, uncomplicated (principal); F11.23 Opioid dependence with withdrawal; Y90.9 Presence of alcohol in blood, level not specified; Z59.0 Homelessness; G43.109 Migraine with aura, not intractable, without status migrainosus; F13.230 Sedative, hypnotic or anxiolytic dependence with withdrawal, uncomplicated; E87.6 Hypokalemia; F17.210 Nicotine dependence, cigarettes, uncomplicated; I10 Essential (primary) hypertension; J01.90 Acute sinusitis, unspecified; J20.9 Acute bronchitis, unspecified; J45.20 Mild intermittent asthma, uncomplicated; E11.9 Type 2 diabetes mellitus without complications
CPT/HCPCS: 36415; 70030-TC; 71020; 80307; 80345; 80346; 80349; 83690; 83735; 84703; 85025; 86592; 86705; 86803; 87340; 87806; 94640; A4663; A9150; G0480; J1815; J1885; J3411; J3475; J3535; Q0163